=== PATIENT | male | born 1970 | race Caucasian/White ===

== ENCOUNTER 2016-05-02 00:18 | Inpatient (IN) | payer OTHER ==
[~2016-05-02] VITALS: Ht 182.9 cm; Wt 162.0 kg
[2016-05-02 01:44] LABS: EOSINOPHILS % (AUTO) 1.8 % (1.0-6.0); HEMATOCRIT 41.5 % (41-53); HEMOGLOBIN 13.7 g/dL (13.5-17.5); LYMPHOCYTES # (AUTO) 1.3 K/uL (1.0-4.8); LYMPHOCYTES % (AUTO) 18.4 % (22.0-44.0); MEAN CORPUSCULAR HEMOGLOBIN 28.2 pg (26.0-34.0); MEAN CORPUSCULAR VOLUME 85 fL (80-100); MONOCYTES # (AUTO) 0.4 K/uL (0.1-1.0); MONOCYTES % (AUTO) 6.3 % (2.0-9.0); NEUTROPHILS % (AUTO) 72.5 % (40.0-70.0); PLATELET COUNT (AUTO) 227 K/uL (150-450); RED BLOOD CELL COUNT(AUTO) 4.87 MIL/uL (4.50-5.90); RED CELL DISTRIBUTION WIDTH 14.6 % (11.5-14.5)
[2016-05-02] MEDS ORDERED: MORPHINE SULFATE 4 MG/ML SYRINGE IVP ONE (01:45)
[2016-05-02] MEDS ORDERED: SODIUM CHLORIDE 0.9% 1,000 ML IV ONE (01:45)
[2016-05-02] MEDS ORDERED: ONDANSETRON HCL 4 MG/2 ML VIAL IVP ONE (01:45)
[2016-05-02 01:57] LABS: CALCIUM, TOTAL 8.3 mg/dL (8.8-10.5); CREATININE 1.39 mg/dL (0.60-1.30); POTASSIUM 4.1 mmol/L (3.5-5.1)
[2016-05-02 02:03] LABS: ALBUMIN 3.3 g/dL (3.4-5.0); BILIRUBIN,TOTAL 0.2 mg/dL (0.1-1.0); TOTAL PROTEIN, SERUM 7.2 g/dL (6.4-8.2)
[2016-05-02 03:27] LABS: APPEARANCE,URINE CLEAR (CLEAR); GLUCOSE, URINE (UA) NEGATIVE (NEGATIVE); PROTEIN,URINE NEGATIVE (NEGATIVE)
[2016-05-02 03:28] LABS: ADD UA MICROSCOPIC YES; KETONES,URINE NEGATIVE (NEGATIVE); LEUKOCYTE ESTERASE ,URINE NEGATIVE (NEGATIVE); OCCULT BLOOD,URINE TRACE-INTA (NEGATIVE)
[2016-05-02] MEDS ORDERED: ONDANSETRON HCL 4 MG/2 ML VIAL IVP PRN ×2 (03:30→08:45)
[2016-05-02] MEDS ORDERED: MORPHINE SULFATE 4 MG/ML SYRINGE IVP PRN (03:30)
[2016-05-02] MEDS ORDERED: 0.9% SODIUM CHLORIDE 10 ML SYRINGE IVP PRN (03:30)
[2016-05-02 03:33] LABS: WBC,URINE None Seen /HPF (0-5)
[2016-05-02] MEDS ORDERED: FentaNYL CITRATE-PF 100 MCG/2 ML VIAL IVP ONE (03:45)
[2016-05-02 04:14] VITALS: BP 151/85
[2016-05-02 07:26] VITALS: BP 154/87
[2016-05-02] MEDS ORDERED: HEPARIN SODIUM,PORCINE 5,000 UNITS/ML VIAL SQ SCH (08:45)
[2016-05-02] MEDS ORDERED: ACETAMINOPHEN 325 MG TABLET PO PRN (08:45)
[2016-05-02] MEDS: OxyCODONE HCL/ACETAMINOPHEN 5-325 MG TABLET PO PRN ×3 (09:21→21:49)
[2016-05-02] MEDS: SODIUM CHLORIDE 0.9% 1,000 ML IV SCH ×2 (09:30→18:51)
[2016-05-02] MEDS: PANTOPRAZOLE SODIUM 40 MG/VIAL IVP SCH (09:35)
[2016-05-02] MEDS: MORPHINE SULFATE 2 MG/ML SYRINGE IVP PRN ×3 (11:03→22:04)
[2016-05-02 11:52] VITALS: BP 141/73
[2016-05-02 19:53] VITALS: BP 123/88
[2016-05-02 23:36] VITALS: BP 138/86
[2016-05-03] MEDS: MORPHINE SULFATE 2 MG/ML SYRINGE IVP PRN ×5 (01:04→14:25)
[2016-05-03 04:28] VITALS: BP 144/104
[2016-05-03] MEDS ORDERED: LORazepam 2 MG/ML VIAL IVP ONE (04:30)
[2016-05-03] MEDS ORDERED: GuaiFENesin/D-METHORPHAN [SUGAR-FREE] 200-20MG/10 ML SYRUP UDCUP PO PRN (05:00)
[2016-05-03] MEDS ORDERED: LORazepam 2 MG/ML VIAL IVP PRN (05:00)
[2016-05-03] MEDS: OxyCODONE HCL/ACETAMINOPHEN 5-325 MG TABLET PO PRN ×2 (05:12→10:28)
[2016-05-03 06:48] LABS: ANION GAP 7 mmol/L (8-16); CALCIUM, TOTAL 8.4 mg/dL (8.8-10.5); CARBON DIOXIDE 29 mmol/L (22-29); CHLORIDE 101 mmol/L (98-107); CREATININE 0.99 mg/dL (0.60-1.30); GLOMERULAR FILTR. RATE CALC > 60 mL/min (>60); POTASSIUM 3.7 mmol/L (3.5-5.1); SODIUM SERUM 137 mmol/L (136-145); UREA NITROGEN, BLOOD 8 mg/dL (7-18)
[2016-05-03 07:36] VITALS: BP 149/78
[2016-05-03] MEDS: PANTOPRAZOLE SODIUM 40 MG/VIAL IVP SCH (07:57)
[2016-05-03 11:20] VITALS: BP 145/75
[2016-05-03] MEDS ORDERED: SODIUM CHLORIDE 0.9% 100 ML ONE (13:34)
[2016-05-03] MEDS ORDERED: IOVERSOL 350 MG/ML 150 ML VIAL ONE (13:34)
[2016-05-03] MEDS ORDERED: BARIUM SULFATE 0.1% SUSPENSION 450 ML BOTTLE ONE (13:35)
[2016-05-03 15:40] VITALS: BP 163/103
[2016-05-03] MEDS ORDERED: CARI350 PO (16:02)
[2016-05-03] MEDS ORDERED: PERCT PO (16:02)
== END 2016-05-03 16:20 | disposition home or self-care (01) | DRG 439 ==
LOC: EMS 00:21 → 6N 03:15
PROVIDERS: ADMIT Internal Medicine; ATTEND Internal Medicine
DX: K85.90 Acute pancreatitis without necrosis or infection, unspecified (principal); N17.9 Acute kidney failure, unspecified; Z68.42 Body mass index [BMI] 45.0-49.9, adult; E44.1 Mild protein-calorie malnutrition; E66.01 Morbid (severe) obesity due to excess calories; F17.210 Nicotine dependence, cigarettes, uncomplicated; Z88.8 Allergy status to other drugs, medicaments and biological substances; Z90.49 Acquired absence of other specified parts of digestive tract; Z98.890 Other specified postprocedural states
CPT/HCPCS: 76705; 96361; 96374; 96375; 99285; C9113; J2060; J2270; J2405; J3010; J7030; J7050

== ENCOUNTER 2023-06-26 19:24 | Emergency (ER) | payer MEDICAID ==
[~2023-06-26 19:24] MED LIST: CARI-493 PO; PERCT PO
== END 2023-06-26 21:45 | disposition left against medical advice (07) ==
LOC: EMS 19:26
DX: Z53.21 Procedure and treatment not carried out due to patient leaving prior to being seen by health care provider (principal)